=== PATIENT | male | born 1940 | race Caucasian/White ===

== ENCOUNTER 2018-03-29 08:26 | Emergency (ER) | payer MEDICARE, OTHER ==
[2018-03-29] MEDS ORDERED: IPRATROPIUM/ALBUTEROL SULFATE 3 ML AMPUL.NEB NEB ONE (08:33)
--- NOTE | 2018-03-29 08:36 | ED Physician Documentation ---
General Adult - HISTORIAN Historian: patient - HPI Stated Complaint: sob Chief Complaint: General Adult Onset: hours Timing: still present Severity: moderate Further Comments: yes (Pt is a 77 yo male with hx COPD who has had sob this am. Pt also had some chest congestion, he says. Pt is returning to this area after having moved to [place] for 10 yrs. Pt was rx'd an oxygen concentrator, but found when he moved to [place] he no longer needed it. Pt denies n/v/ diaphoresis and describes chest discomfort as "congestion." Pt has had CABG about 8 yrs ago.) - ROS CONST: weakness EYES/ENT: none CVS/RESP: shortness of breath GI/: none MS/SKIN/LYMPH: none - PAST HX Past History: COPD, other (COPD, DM, HTN, mild dementia, HLD, Gout, ) Surgeries/Procedures: cholecystectomy, other (CABG 2009, ortho surgery) Allergies/Adverse Reactions: Allergies Allergy/AdvReac Type Severity Reaction Status Date / Time morphine Allergy Verified 03/29/18 08:40 Home Medications: Ambulatory Orders Medication Instructions Recorded Allopurinol [Zyloprim] 1 tab PO BID 03/29/18 Edoxaban Tosylate [Savaysa] 1 tab PO DAILY 03/29/18 Fluticasone/Salmeterol [Advair 1 puff INH BID 03/29/18 100-50 Diskus] Hydrocodone/Acetaminophen 1 tab PO Q4 PRN 03/29/18 [Hydrocodone-Acetamin 10-325 mg] Insulin Detemir [Levemir Flex-Pen] 35 units SQ BID 03/29/18 Ipratropium/Albuterol Sulfate 1 vial INH QID 03/29/18 [Duoneb] Lisinopril/Hydrochlorothiazide 1 tab PO DAILY 03/29/18 [Zestoretic] Memantine HCl/Donepezil HCl 1 cap PO DAILY 03/29/18 [Namzaric 28 mg-10 mg Capsule] Metformin HCl [Metformin HCl ER] 1 tab PO BID 03/29/18 Montelukast Sodium [Singulair] 1 tab PO DAILY 03/29/18 Oxybutynin Chloride [Ditropan Xl] 1 tab PO DAILY 03/29/18 Rosuvastatin Calcium [Crestor] 1 tab PO DAILY 03/29/18 Theophylline Anhydrous [Abilio-24] 1 tab PO DAILY 03/29/18 Tiotropium [place] [Spiriva] 1 puff INH DAILY 03/29/18 Umeclidinium [place] [Incruse 1 puff INH DAILY 03/29/18 Ellipta] - SOCIAL HX Smoking History: non-smoker - FAMILY HX Family History: No - REVIEWED ASSESSMENTS Nursing Assessment Reviewed: Yes Vitals Reviewed: Yes Progress - Progress Progress: Duoneb HFN Pulmicort HFN improved while at rest Pt up to walk in hallway with SpO2 monitor. SpO2 94% --> 70% with walking short distance. HR 88 -->50. Pt became weak and had to sit in chair in hallway before returning to room. - EKG/XRAY/CT EKG: NSR (HR=78; norm), nonspecific ST T wave chg (HR=78; normal axis; normal OK interval.) XRAY: chest (Chronic interstitial changes and presumed pleural calcifications. No gross effusion.) ED Results Lab/Radiology - Orders Orders: ED Orders Category Date Time Status Continuous EKG monitoring Q30M Care 03/29/18 08:32 Active Continuous Pulse Oximetry Q30M Care 03/29/18 08:[address] IV Lock 1T Care 03/29/18 08:32 Active CHEST 1VIEW [RAD] Stat Exams 03/29/18 Ordered CBC/PLATELET/DIFF Routine Lab 03/29/18 08:32 Ordered CKMB Stat Lab 03/29/18 Ordered CMP Routine Lab 03/29/18 08:32 Ordered CREATINE KINASE Routine Lab 03/29/18 08:32 Ordered NT-proBNP Stat Lab 03/29/18 Ordered TROPONIN I (cTnI) Stat Lab 03/29/18 Ordered Ipratropium/Albuterol Sulfate [Duoneb] Med 03/29/18 08:33 Discontinued 3 ml NEB NOW ONE EKG WITH COMPARISON Stat Ther 03/29/18 08:32 Ordered General Adult Physical Exam - PHYSICAL EXAM GENERAL APPEARANCE: moderate distress EENT: pharynx normal NECK: normal inspection, supple RESPIRATORY: wheezes CVS: reg rate & rhythm, heart sounds normal ABDOMEN: soft, no organomegaly, normal bowel sounds BACK: normal inspection, no CVA tenderness SKIN: warm/dry, normal color EXTREMITIES: non-tender, normal range of motion, no evidence of injury NEURO: oriented X3, CN's nml as tested, motor nml, other (hx mild dementia) Discharge Clincal Impression: Dyspnea on exertion, COPD Referrals: Primary Doctor,No [Primary Care Provider] - 2 Days Condition: Stable Disposition: 02 XFER SHT-TRM HOSP Decision to Admit: NO Decision Time: 12:09
[2018-03-29 08:51] LABS: BASOPHILS % 0.3 (0.0-1.5); EOSINOPHILS % 2.6 % (0.0-6.8); MEAN CORPUSCULAR HEMOGLOBIN 29.6 pg (28.0-34.0); MEAN CORPUSCULAR VOLUME 94.9 fl (80.0-100.0); MONOCYTES % 6.9 % (0.0-11.0); NEUTROPHILS # 3.6 # k/uL (1.4-7.7)
[2018-03-29] MEDS ORDERED: BUDESONIDE 0.5MG/2ML AMPUL.NEB NEB ONE (09:22)
--- NOTE | 2018-03-29 09:54 | Diagnostic Imaging Report ---
CHANA AQUINO [facility] [id number] [facility] [address] [place] [address]. [id number] Report Submission Date: March 29, 2018 8:49:21 AM CDT Patient Study Name: CHIN JOYNER Date: March 29, 2018 8:34:22 AM CDT Modality Type: DX Gender: M Description: CHEST : 38 Institution: [facility] Physician: CHANA AQUINO Examination: Portable chest History: Evaluate lungs. PCXR, PT STATES CHRONIC SOA, WORSENING IN THE LAST DAY (Hx) Comparison exam: None provided. Findings: Single view of the chest demonstrates a prominent cardiac and mediastinal silhouette. Postsurgical changes and sternotomy wires projecting over the mediastinum. Elevated right hemidiaphragm. Chronic interstitial changes and presumed pleural calcifications. Lung rodriguez without gross infiltrate. No blunting of the costophrenic margins. Articular degenerative changes. Impression: Chronic interstitial changes and presumed pleural calcifications. No gross effusion. Electronically signed on March 29, 2018 8:49:21 AM CDT by: Ran CANTRELL
[2018-03-29] MEDS ORDERED: BUDESONIDE 0.5MG/2ML AMPUL.NEB NEB SCH (10:00)
[2018-03-29 12:51] VITALS: BP 169/72
== END 2018-03-29 12:26 | disposition short-term general hospital (02) ==
LOC: ED 08:26
DX: R06.00 Dyspnea, unspecified (principal); J44.9 Chronic obstructive pulmonary disease, unspecified
CPT/HCPCS: 71045; 80053; 82550; 82553; 83880; 84484; 85025; 94640; 99285; J7626; S1016